=== PATIENT | male | born 1935 | race Caucasian/White ===

== ENCOUNTER 2022-03-30 19:54 | Emergency (ER) | payer MEDICARE ==
[2022-03-30] MEDS ORDERED: Ondansetron 4 MG Tab.DIS PO ONE (20:59)
[2022-03-30] MEDS: Sodium Chloride 0.9% 10 ML Syringe FLUSH PRN ×2 (21:02→21:37)
[2022-03-30] MEDS ORDERED: Ondansetron 4 MG Tab.DIS ONE (21:04)
[2022-03-30 21:23] LABS: TROPONIN I HIGH SENSITIVITY 28.7 pg/ml (<=60.4)
[2022-03-30] MEDS ORDERED: Prochlorperazine 10 MG/2 ML SDV IVPUSH ONE (21:26)
[2022-03-30] MEDS ORDERED: Pantoprazole 40 MG Vial IVPUSH ONE (21:26)
[2022-03-30] MEDS ORDERED: Prochlorperazine 10 MG/2 ML SDV ONE (21:42)
[2022-03-30] MEDS ORDERED: Pantoprazole 40 MG Vial ONE (21:42)
== END 2022-03-30 21:55 | disposition home or self-care (01) ==
LOC: LB.ED 19:54
DX: K52.9 Noninfective gastroenteritis and colitis, unspecified (principal); Z79.82 Long term (current) use of aspirin; Z79.899 Other long term (current) drug therapy
CPT/HCPCS: 36415; 71045; 80053; 83690; 83735; 84100; 84484; 85027; 93005; 93010; 96374; 96375; 99282; 99284-25; C9113; J0780; J3490; Q0162

== ENCOUNTER 2023-10-26 13:13 | Emergency (ER) | payer MEDICARE ==
[2023-10-26] MEDS: Tetracaine HCl/PF 0.5% 4 ML Bottle EYELF ONE (13:51)
[2023-10-26] MEDS: Gabapentin 300 MG Cap PO ONE (14:01)
[2023-10-26 15:20] VITALS: PULSE 51
[2023-10-26 15:21] VITALS: BP 135/70
== END 2023-10-26 15:12 | disposition home or self-care (01) ==
LOC: LB.ED 13:13
DX: J01.00 Acute maxillary sinusitis, unspecified (principal); E78.00 Pure hypercholesterolemia, unspecified; Z79.899 Other long term (current) drug therapy
CPT/HCPCS: 70450; 70486; 99283; A9270-GY